=== PATIENT | male | born 1960 | race Caucasian/White ===

== ENCOUNTER 2016-03-07 00:07 | Emergency (ER) | payer SELFPAY ==
[~2016-03-07] VITALS: Ht 182.9 cm; Wt 93.0 kg
[2016-03-07] MEDS ORDERED: ENAL5TAB PO (00:30)
[2016-03-07] MEDS ORDERED: ASPI-983 PO (00:30)
[2016-03-07 00:57] LABS: BASOPHILS # (AUTO) 0.1 10^3/uL (0.0-0.1); BASOPHILS % (AUTO) 1 % (0-10); EOSINOPHILS # (AUTO) 0.2 10^3/uL (0.0-0.3); EOSINOPHILS % (AUTO) 4 % (0-10); LYMPHOCYTES # (AUTO) 1.7 X 10^3 (1.0-4.0); LYMPHOCYTES % (AUTO) 29 % (12-44); MEAN CORPUSCULAR HEMOGLOBIN 29 PG (25-34); MEAN CORPUSCULAR HGB CONC 34 G/DL (32-36); MEAN CORPUSCULAR VOLUME 87 FL (80-99); MEAN PLATELET VOLUME 10.9 FL (7.4-10.4); MONOCYTES # (AUTO) 0.5 X 10^3 (0.0-1.0); MONOCYTES % (AUTO) 8 % (0-12); NEUTROPHILS # (AUTO) 3.5 X 10^3 (1.8-7.8); NEUTROPHILS % (AUTO) 59 % (42-75); PLATELET COUNT 175 10^3/uL (130-400); RED BLOOD COUNT 5.39 10^6/uL (4.35-5.85); RED CELL DISTRIBUTION WIDTH 12.7 % (10.0-14.5); WHITE BLOOD COUNT 5.9 10^3/uL (4.3-11.0)
--- NOTE | 2016-03-07 00:59 | ED General ---
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 Nursing Sepsis Screen: No Definite Risk Source of Information: Patient History of Present Illness Time Seen by Provider: 00:40 Initial Comments PT ARRIVES VIA POV FROM HOME PT STATES HE WAS ASLEEP AND WOKE UP AND SUDDENLY FELT DIZZY, SUDDENLY HE FELT COLD AND TINGLY ALL OVER--20 MINUTES PRIOR TO ARRIVAL DID HAVE SOME HEART BURN AND SORE THROAT WITH IT--IS BETTER NOW C/O MID BACK PAIN X 1 WEEK--WORSE WITH MOVEMENTS. NO INJURY, BUT PT IS A OLIVER- -HEAVY LIFTING, ETC. ALL THE TIME NO PALPITATIONS NO SWELLING IN LEGS/FEET OR PAIN IN CALVES NO SHORTNESS OF BREATH NO COUGH NO FEVER HAD A COLD THE END OF JANUARY, AND SYMPTOMS WENT AWAY WITH [facility] NO HISTORY OF SIMILAR CONCERNED BECAUSE HIS BROTHER A FEW MONTHS AGO AT AGE 59 FROM [place]PTURED [place] NO PCP GOES TO [facility] FOR ALL MEDICAL CARE, INCLUDING BP MEDICATIONS Allergies and Home Medications Allergies Coded Allergies: No Known Drug Allergies (Unverified , 03/07/16) Home Medications Aspirin 81 Mg Tablet.dr 81 MG PO DAILY (Reported) Cyclobenzaprine HCl 10 Mg Tablet #15 10 MG PO Q8H Prescribed by: SHAHEEN KLINE on 03/07/16237 Enalapril Maleate 5 Mg Tablet 5 MG PO DAILY (Reported) Naproxen 500 Mg Tablet #20 500 MG PO BID Prescribed by: SHAHEEN KLINE on 03/07/168 Constitutional: see HPI chills dizziness weakness EENTM: no symptoms reported Respiratory: see HPI Cardiovascular: see HPINo edema, No palpitations, No syncope, No vascular heart diseas Gastrointestinal: no symptoms reportedNo abdominal pain, No diarrhea, No nausea, No vomiting Genitourinary: no symptoms reported Musculoskeletal: see HPI back pain Skin: no symptoms reported Psychiatric/Neurological: See HPIDenies Headache, Paresthesia TinglingDenies Weakness Hematologic/Lymphatic: No Symptoms Reported Immunological/Allergic: no symptoms reported Past Hnkqozi-Rygzqz-Qebxdd Hx Patient Social History Alcohol Use: Denies Use Recreational Drug Use: No Smoking Status: Never a Smoker Recent Foreign Travel: No Contact w/Someone Who Travel: No Recent Infectious Disease Expo: No Recent Hopitalizations: No Physical Abuse Screen: No Sexual Abuse: No Seasonal Allergies Seasonal Allergies: No Surgeries HX Surgeries: Yes Surgeries: Orthopedic Respiratory Hx Respiratory Disorders: No Cardiovascular Hx Cardiac Disorders: Yes Cardiac Disorders: Hypertension Neurological Hx Neurological Disorders: No Reproductive System Hx Reproductive Disorders: No Genitourinary Hx Genitourinary Disorders: No Gastrointestinal Hx Gastrointestinal Disorders: No Musculoskeletal Hx Musculoskeletal Disorders: No Endocrine Hx Endocrine Disorders: No HEENT HX ENT Disorders: No Cancer Hx Cancer: No Psychosocial Hx Psychiatric Problems: No Integumentary HX Skin/Integumentary Disorder: No Blood Transfusions Hx Blood Disorders: No Physical Exam Vital Signs Vital Sign - Last 12Hours 03/07/16 00:25 Temp 97.2 Pulse 77 Resp 18 B/P 152/120 Capillary Refill : Less Than 3 Seconds General Appearance: No Apparent Distress HEENT: PERRL/EOMI Normal ENT Inspection Neck: Full Range of Motion Normal Inspection Non Tender SuppleNo Carotid Bruit , No JVD Respiratory: Chest Non Tender Normal Breath Sounds No Accessory Muscle Use No Respiratory Distress Cardiovascular: Regular Rate, Rhythm No Edema No JVD No Murmur Normal Peripheral Pulses Gastrointestinal: Normal Bowel Sounds No Organomegaly No Pulsatile Mass Non Tender Soft Back: Other (MILD MID AND LOWER THORACIC TENDERNESS AND SPASMS. PAIN IN THIS AREA IS ALSO REPRODUCED WITH MOVEMENTS) Extremity: Normal Capillary Refill Normal Inspection Normal Range of Motion Non Tender No Calf Tenderness No Pedal Edema Neurologic/Psychiatric: Alert Oriented x3 No Motor/Sensory Deficits Normal Mood/Affect retort feeder ground bone II-XII Norm as Tested Skin: Normal Color Warm/Dry Progress/Results/Core Measures Results/Orders Lab Results Laboratory Tests Test 03/07/16 00:47 Range/Units Activated Partial Thromboplast Time 25 24-35 SEC Alanine Aminotransferase (ALT/SGPT) 60 H 0-55 U/L Albumin 4.2 3.2-4.5 G/DL Alkaline Phosphatase 70 40-136 U/L Anion Gap 9 5-14 MMOL/L Aspartate Amino Transf (AST/SGOT) 36 H 5-34 U/L B-Type Natriuretic Peptide < 10.0 <100.0 PG/ML BUN/Creatinine Ratio 19 Basophils # (Auto) 0.1 0.0-0.1 10^3/uL Basophils (%) (Auto) 1 0-10 % Blood Urea Nitrogen 21 H 7-18 MG/DL Calcium Level 8.8 8.5-10.1 MG/DL Carbon Dioxide Level 23 21-32 MMOL/L Chloride Level 105 98-107 MMOL/L Creatine Kinase MB 0.9 <6.6 NG/ML Creatinine 1.09 0.60-1.30 MG/DL Eosinophils # (Auto) 0.2 0.0-0.3 10^3/uL Eosinophils (%) (Auto) 4 0-10 % Estimat Glomerular Filtration Rate > 60 Glucose Level 115 H 70-105 MG/DL Hematocrit 47 40-54 % Hemoglobin 15.8 13.3-17.7 G/DL INR Comment 1.0 0.8-1.4 Lymphocytes # (Auto) 1.7 1.0-4.0 X 10^3 Lymphocytes (%) (Auto) 29 12-44 % Magnesium Level 2.5 H 1.8-2.4 MG/DL Mean Corpuscular Hemoglobin 29 25-34 PG Mean Corpuscular Hemoglobin Concent 34 32-36 G/DL Mean Corpuscular Volume 87 80-99 FL Mean Platelet Volume 10.9 H 7.4-10.4 FL Monocytes # (Auto) 0.5 0.0-1.0 X 10^3 Monocytes (%) (Auto) 8 0-12 % Neutrophils # (Auto) 3.5 1.8-7.8 X 10^3 Neutrophils (%) (Auto) 59 42-75 % Platelet Count 175 130-400 10^3/uL Potassium Level 4.2 3.6-5.0 MMOL/L Prothrombin Time 12.9 12.2-14.7 SEC Red Blood Count 5.39 4.35-5.85 10^6/uL Red Cell Distribution Width 12.7 10.0-14.5 % Sodium Level 137 135-145 MMOL/L Total Bilirubin 0.3 0.1-1.0 MG/DL Total Creatine Kinase 61 30-200 U/L Total Protein 7.0 6.4-8.2 G/DL Troponin I < 0.30 <0.30 NG/ML White Blood Count 5.9 4.3-11.0 10^3/uL My Orders Orders-SHAHEEN KLINE DO Saline Lock/Iv-Start (03/07/16 00:41) Ekg Tracing (03/07/16 00:41) Monitor-Rhythm Ecg Trace Only (03/07/16 00:41) BNP (1/23/17 00:41) Cbc With Automated Diff (03/07/16 00:41) Comprehensive Metabolic Panel (03/07/16 00:41) Creatine Kinase (03/07/16 00:41) Creatine Kinase Mb (03/07/16 00:41) Magnesium (03/07/16 00:41) Protime With Inr (03/07/16 00:41) Partial Thromboplastin Time (03/07/16 00:41) Troponin I (03/07/16 00:41) Chest Pa/Lat (2 View) (03/07/16 00:41) Ct Consuelo Chest/Noang Abd-Pelv W (03/07/16 ) Iohexol Injection (Omnipaque 350 Mg/Ml 1 (03/07/16 02:15) Ns (Ivpb) (Sodium Chloride 0.9% Ivpb Bag (03/07/16 02:15) Medications Given in ED Current Medications Medications Dose Ordered Sig/Cristhian Route Start Time Stop Time Status Last Admin Dose Admin Iohexol 150 ml ONCE ONCE IV 03/07/16 02:15 03/07/16 02:16 DC 03/07/16 02:06 125 ML Sodium Chloride 100 ml ONCE ONCE IV 03/07/16 02:15 03/07/16 02:16 DC 03/07/16 02:06 80 ML Vital Signs/I&O Vital Sign - Last 12Hours 03/07/16 00:25 Temp 97.2 Pulse 77 Resp 18 B/P 152/120 Blood Pressure Mean: 131 Progress Note : Progress Note SYMPTOMS RESOLVED AND BP DOWN AT DISMISSAL--130/86 ECG Initial ECG Impression Time: 00:53 Initial ECG Rate: 76 Initial ECG Rhythm: Normal Sinus Initial ECG Impression: Normal Initial ECG Comparisson: No Previous ECG Available Diagnostic Imaging Comments CXR--NO ACUTE PROCESS, PENDING RADIOLOGIST REVIEW CT CHEST ANGIO/ABDOMEN PELVIS --NO ACUTE PROCESS, INCIDENTAL NON-ACUTE FINDINGS- -PER [facility] VIA FAX @ [phone] Reviewed: Reviewed by Me Departure Impression Impression: Primary Impression: Mid back pain Additional Impressions: HTN (hypertension) TRANSIENT DIZZINESS Disposition: 01 HOME, SELF-CARE Condition: Improved Departure-Patient Inst. Referrals: NO,LOCAL PHYSICIAN (PCP) Primary Care Physician Patient Instructions: High Blood Pressure (DC), Upper Back Pain (DC) Add. Discharge Instructions: MOIST HEAT TO BACK AT 20 MINUTE INTERVALS ACTIVITIES TOLERATED TAKE YOUR MEDICATIONS PRESCRIBED FOLLOW UP WITH YOUR DR NEXT WEEK FOR FURTHER CARE All discharge instructions reviewed with patient and/or family. Voiced understanding. Scripts Cyclobenzaprine HCl 10 Mg [id number] Mg PO Q8H #15 TAB Prov:SHAHEEN KLINE DO 03/07/16 Naproxen 500 Mg [id number] Mg PO BID #20 TAB Prov:SHAHEEN KLINE DO 03/07/16 SHAHEEN KLINE DO Mar 07, 2016 00:59
[2016-03-07 01:06] LABS: PROTHROMBIN TIME PATIENT 12.9 SEC (12.2-14.7)
[2016-03-07 01:20] LABS: ALANINE AMINOTRANSFERASE 60 U/L (0-55); ALBUMIN 4.2 G/DL (3.2-4.5); ANION GAP 9 MMOL/L (5-14); ASPARTATE AMINO TRANSFERASE 36 U/L (5-34); BILIRUBIN,TOTAL 0.3 MG/DL (0.1-1.0); BLOOD UREA NITROGEN 21 MG/DL (7-18); BUN/CREATININE RATIO 19; CALCIUM 8.8 MG/DL (8.5-10.1); CARBON DIOXIDE 23 MMOL/L (21-32); CHLORIDE 105 MMOL/L (98-107); CREATINE KINASE 61 U/L (30-200); CREATININE SERUM 1.09 MG/DL (0.60-1.30); GFR ESTIMATED > 60; GLUCOSE 115 MG/DL (70-105); MAGNESIUM 2.5 MG/DL (1.8-2.4); POTASSIUM 4.2 MMOL/L (3.6-5.0); SODIUM 137 MMOL/L (135-145)
[2016-03-07 01:26] LABS: TROPONIN I < 0.30 NG/ML (<0.30)
[2016-03-07] MEDS ORDERED: IOHEXOL 350 MG/ML 150 ML (OMNIPAQUE 350) VIAL IV ONE (02:15)
[2016-03-07] MEDS ORDERED: NS 100 ML (IVPB) BAG IV ONE (02:15)
[2016-03-07] MEDS ORDERED: CYCL10TA9 PO (02:38)
[2016-03-07] MEDS ORDERED: NAPR500T3 PO (02:38)
[2016-03-07 02:48] VITALS: BP 130/86
--- NOTE | 2016-03-07 07:10 | Diagnostic Imaging Report ---
INDICATION: Mid back pain x2 weeks PA and lateral chest Heart size and pulmonary vascularity are normal. Lungs are clear. There are no effusions or pneumothoraces. IMPRESSION: No acute abnormalities in the chest Dictated by: Dictated on workstation # [id number]
--- NOTE | 2016-03-07 07:14 | Diagnostic Imaging Report ---
INDICATION: Back pain x2 weeks. CTA chest, abdomen and pelvis. Thin axial sections through the chest, abdomen and pelvis were obtained following intravenous contrast bolus. Multiplanar and MIP images reconstructed and reviewed. There is a small wedge-shaped patchy alveolar infiltrate in the posterior segment of the right upper lobe seen best on image 62 series 4. There are no masses in the lungs. There are no effusions or pneumothoraces. There is no hilar or mediastinal lymphadenopathy. There is no aortic dissection or aneurysm. There are no pulmonary emboli. IMPRESSION: Small patchy infiltrate right upper lobe. CT abdomen and pelvis: The liver appears normal. Gallbladder is present. Spleen is not enlarged. There are no pancreatic masses. Kidneys and adrenals appear normal. Aorta and IVC appear normal. Visceral arterial branches appear widely patent. Urinary bladder is normal. There are no pathologic masses or fluid collection seen in the pelvis. The appendix is normal. Large and small intestine are unremarkable. IMPRESSION: Unremarkable CTA of the abdomen and pelvis. I agree with preliminary interpretation. Dictated by: Dictated on workstation # [id number]
== END 2016-03-07 02:50 | disposition home or self-care (01) ==
LOC: EDUNIT# 00:07 → ER 00:11
DX: R42 Dizziness and giddiness (principal); M54.5 Low back pain; I10 Essential (primary) hypertension; Z79.82 Long term (current) use of aspirin; Z79.899 Other long term (current) drug therapy
CPT/HCPCS: 36415; 71020; 71275; 74177; 80053; 82550; 82553; 83735; 83880; 84484; 85025; 85610; 85730; 93005; 93041